=== PATIENT | male | born 2000 | race Caucasian/White ===

== ENCOUNTER 2019-11-01 21:12 | Emergency (ER) | payer MEDICAID, SELFPAY ==
[2019-11-01 21:13] VITALS: BP 178/97; PULSE 100; RESP 18; TEMP 36.9; O2SAT 98; BMI 32.3
--- NOTE | 2019-11-01 21:30 | RAD_ITS ---
STUDY: X-RAY - LEFT HAND REASON FOR EXAM: Male, 19 years old. Bilateral hand pain after punching a wall TECHNIQUE: 3 view(s) of the hand. COMPARISON: Right hand dated November 01, 2019 FINDINGS: Normal radiocarpal articulation. Normal distal radioulnar joint. There are smooth rounded bony densities distal to the ulna that likely reflect underlying ossicles. Normal visualized carpal bones. Normal carpal articulations Normal carpometacarpal articulation of the thumb. Normal second through fifth carpometacarpal joints. There is a fracture within the proximal metaphysis of the fifth metacarpal fracture. Normal metacarpophalangeal joint of the thumb. Normal interphalangeal joint of the thumb. Normal proximal and distal phalanges of the thumb. Normal metacarpophalangeal joints of the second through fifth fingers. Normal proximal and distal interphalangeal joints of the second through fifth fingers. Normal phalanges of the second through fifth fingers. The soft tissue structures are unremarkable. RAD/Hand Min 3 Views IMPRESSION: Fifth metacarpal fracture. Electronically Signed: Rupali Deluna MD at 21:51 EDT Tel , Service support ,
--- NOTE | 2019-11-01 21:40 | RAD_ITS ---
STUDY: X-RAY - RIGHT HAND REASON FOR EXAM: Male, 19 years old. bilateral hand pain after punching a wall TECHNIQUE: 3 view(s) of the hand. COMPARISON: None. FINDINGS: Normal radiocarpal articulation. Normal distal radioulnar joint. Normal visualized carpal bones. Normal carpal articulations Normal carpometacarpal articulation of the thumb. Normal second through fifth carpometacarpal joints. Oblique proximal diaphyseal fracture of the fourth metacarpal with volar angulation of the distal metacarpal. Acute comminuted distal diaphyseal fracture of the fifth metacarpal with mild radial radial displacement and moderate volar angulation of the distal metacarpal. Normal metacarpophalangeal joint of the thumb. Normal interphalangeal joint of the thumb. Normal proximal and distal phalanges of the thumb. Normal metacarpophalangeal joints of the second through fifth fingers. Normal proximal and distal interphalangeal joints of the second through fifth fingers. Normal phalanges of the second through fifth fingers. Fracture related soft tissue swelling. RAD/Hand Min 3 Views IMPRESSION: Acute oblique proximal diaphyseal fracture of the fourth metacarpal with mild volar angulation of the distal fourth metacarpal. Acute comminuted fracture of the distal diaphysis of the fifth metacarpal with mild radial displacement and moderate volar angulation of the distal metacarpal. Electronically Signed: Teodora Lee MD at 21:55 EDT , Service support ,
[2019-11-01] MEDS: Naproxen 250 MG Tablet 500 MG PO (21:43)
[2019-11-01] MEDS: Bupivacaine Mpf 0.5% 30 ML VIAL INFILT (22:40)
--- NOTE | 2019-11-01 23:28 | ED.RN ---
mother called in for pt update
--- NOTE | 2019-11-01 23:59 | ED.VISSUMM ---
- ER Visit Summary Date of Service: 11/01/19 Chief Complaint: [] History of Present Illness: The patient is a 19 M [] Physical Examination: [] Test Results: [] Emergency Department Course and Treatment: [] Treatment Plan: [] Disposition: [] Impression: [] This note was generated with [employer] dictation software. It may contain incorrect words, spelling, and punctuation that were not noted in review of the chart prior to signing ED Disposition - Plan for ED Patient: Disposition: Home or Assisted Living Diagnosis: Boxers fracture Instructions: ED Fx Hand Closed Prescriptions: Oxycodone HCl/Acetaminophen [Percocet 5/325] 1 tab PO Q6H PRN PRN 5 Days #20 tab PRN Reason: Pain Or Fever Prescription Printed Referrals: Michelle Alfaro DO [STAFF PHYSICIAN] - As soon as possible
== END 2019-11-02 00:29 | disposition home or self-care (01) ==
PROVIDERS: Emergency Provider Emergency Medicine; PCP Pediatrics
DX: S62.304A Unspecified fracture of fourth metacarpal bone, right hand, initial encounter for closed fracture (principal); S62.306A Unspecified fracture of fifth metacarpal bone, right hand, initial encounter for closed fracture; S62.307A Unspecified fracture of fifth metacarpal bone, left hand, initial encounter for closed fracture; W22.09XA Striking against other stationary object, initial encounter; Y93.9 Activity, unspecified; Y92.008 Other place in unspecified non-institutional (private) residence as the place of occurrence of the external cause; Y99.9 Unspecified external cause status; I10 Essential (primary) hypertension
CPT/HCPCS: 26605 ×2; 29125; 73130; 99283

== ENCOUNTER 2019-11-16 07:52 | Day surgery (SDC) | payer MEDICAID, SELFPAY ==
[2019-11-09 10:19] VITALS: BMI 32.3
[2019-11-16 08:22] VITALS: BP 142/71; PULSE 72; RESP 16; TEMP 36.9; O2SAT 96; BMI 34.0
[2019-11-16] MEDS: Lactated Ringers 1,000 ML 100 ML IV (08:29)
--- NOTE | 2019-11-16 08:47 | PCM.HP.BLA ---
History and Physical I have re-examined the patient. There are no clinical changes since date of exam. Intake Vital Signs 11/09/19 BMI 32.3 Intake Visit Reasons: Bilat Hands Is patient in pain?: Yes Pain scale (1-10): 4 Allergies No Known Allergies Allergy (Verified 11/09/19 10:19) Medications oxycodone 5 mg capsule 5 mg PO BID PRN 11/09/19 [History Confirmed 11/09/19] PFSH Social History Smoking Status: Current every day smoker HPI Bilat Hands: Details: Parts of this documentation were recorded by a scribe, this documentation accurately reflects the service provided and the decisions made by me, Dr. Michelle Alfaro DO 11/09/19 1011. MOI CORTES JR is a 19 year old M here today for bilateral hand pain. Patient notes last Tuesday he punched a basement wall. Patient notes that he has deformities and went to the ED. Patient had xrays which showed fractures and he was put into splints which he has left on at all times. Patient notes that his pain is at a 4/10 currently. He is taking oxycodone for pain. He is able to move this thumb with no pain. He notes that he has swelling into his fingers and bruising. Denies numbness, tingling or other associated symptoms. SANDOVAL Nguyen Reports joint pain, Reports joint swelling Assessment & Plan Problems 1. Closed displaced fracture of shaft of fifth metacarpal bone of right hand, initial encounter S62.326A 2. Closed displaced fracture of shaft of fourth metacarpal bone of right hand, initial encounter S62.324A 3. Closed nondisplaced fracture of base of fifth metacarpal bone of left hand, initial encounter S62.347A Plan - Dr. Michelle Alfaro DO Spoke with the patient about surgery procedure on his right hand. He will have a plating of his 4th and 5th metacarpal. If he decides to not have surgery, he would lose function of his hand. Spoke with him about removal of the plate if it is painful after a year. Reviewed the pre-operative plans with the patient. Risks and benefits of the procedure were fully explained, including but not limited to infection, neurovascular injury, continued pain, arthritis, stiffness, need for further surgery, re-injury, DVT, PE, general risks of anesthesia, and loss of limb or life. The patient understands all the risks and does wish to proceed with written consent. Spoke with the covid testing and risk of covid. Patient will be put into a cast on his left hand. Recommended the patient stop smoking due to slowed healing. Follow up for 2 week post op appt or sooner if pain, swelling, numbness or associated symptoms, or concerns develop. All questions answered. Patient in agreement of plan. Coding Diagnoses Closed displaced fracture of shaft of fifth metacarpal bone of right hand, initial encounter S62.326A ??Encounter type: initial encounter ??Fracture type: closed ??Metacarpal location: shaft ??Fracture alignment: displaced Closed displaced fracture of shaft of fourth metacarpal bone of right hand, initial encounter S62.324A ??Encounter type: initial encounter ??Fracture type: closed ??Metacarpal location: shaft ??Fracture alignment: displaced Closed nondisplaced fracture of base of fifth metacarpal bone of left hand, initial encounter S62.347A ??Encounter type: initial encounter ??Fracture type: closed ??Metacarpal location: base ??Fracture alignment: nondisplaced Procedure Criteria Procedure Type: Essential Procedure Essential: Yes Criteria Statement: On 09/04/2019 the [facility] ([facility]) Public Order signed by [facility] Director Mariann Page M.D., regarding the Management of Non-Essential Surgeries and Procedures for the purpose of preserving Personal Protective Equipment (PPE) and critical hospital capacity and resources within [place] went into effect as of 09/05/2019 at 5:00PM. According to the [facility] Public Order: This action will remain in full force and effect until the State of Emergency declared by the Governor no longer exists or the Director of the [facility] rescinds or modifies this Order. This [facility] order stated all non-essential or elective surgeries and procedures that utilize PPE should be delayed unless there is undue risk to the current or future health of a patient. After reviewing the aforementioned [facility] Public Order and the patient's clinical case, I have determined that the scheduled procedure meets the criteria to go forward. Risk to Patient if Procedure Delayed: Presence of severe symptoms causing an inability to perform ADL's
[2019-11-16] MEDS: Cefazolin 2 GM in 0.9% Normal Saline 100 ML IV (09:36)
--- NOTE | 2019-11-16 09:40 | RAD_ITS ---
STUDY: X-RAY - LEFT HAND REASON FOR EXAM: Closed reduction fifth metacarpal fracture. TECHNIQUE: 2 intraoperative images of the hand. COMPARISON: Radiographs 11/01/2019. FINDINGS: Although there is an overlying cast, the fifth metacarpal fracture appears in anatomic alignment and position. 5.7 seconds of fluoroscopy time was used. Electronically Signed: Anthony Potter MD at 15:02 EDT Tel , Service support , RAD/Hand Min 3 Views
--- NOTE | 2019-11-16 09:40 | RAD_ITS ---
STUDY: X-RAY - RIGHT HAND REASON FOR EXAM: ORIF fourth and fifth metacarpal fractures. TECHNIQUE: 4 intraoperative images of the hand. COMPARISON: Radiographs 11/01/2019. FINDINGS: There is an orthopedic plate and screws transfixing the fifth metacarpal diaphyseal fracture in anatomical alignment and position. There are 3 orthopedic screws transfixing the fourth metacarpal diaphyseal fracture in anatomic alignment and position. 79.6 seconds of fluoroscopy time was used. Electronically Signed: Anthony Potter MD at 15:29 EDT Tel , Service support , RAD/Hand Min 3 Views
[2019-11-16] MEDS: Mupirocin Ointment 22gm Tube 1 APPLIC (13:06)
--- NOTE | 2019-11-16 13:12 | PCM.DC.ORTHO ---
Discharge Diet: No Restrictions - nwb bilateral upper extremities, keep dressing clean dry and intact, follow up in 2 weeks with nik jean or dr alfaro [phone] Discharge Activity: May Not Drive May shower in (days): 1 Ice area for (Minutes): 20 - Every hour while awake. Weight Bearing Status: Weight bearing as tolerated Keep extremity elevated above heart level: Operative Extremity Call your doctor if your incision/area has: Continuous Slow Oozing, Sudden Increased Bleeding, Increased Pain/ Swelling, Increased Redness, Foul Smelling Discharge Call your doctor if you observe: Fever of 101 or Higher, Coldness, Increased Pain, Numbness or Tingling, Change in Color, Calf discomfort Allergies/Adverse Reactions: Allergies No Known Allergies Allergy (Verified 11/16/19 08:21) Medications to take at Discharge oxycodone 5 mg capsule 5 mg PO BID PRN 11/09/19 Oxycodone HCl/Acetaminophen [Percocet 5/325] 1 - 2 tablet PO Q6H PRN PRN 5 Days #28 tablet 11/16/19 The following prescriptions were given: Oxycodone HCl/Acetaminophen [Percocet 5/325] 1 - 2 tablet PO Q6H PRN PRN 5 Days #28 tablet PRN Reason: Pain Transmission Status: Sent to [facility] Primary Care Physician: Samuel Alvarez MD [Primary Care Provider] - Test Results: Test results from this visit will be discussed in further detail at your follow-up appointment, if applicable. Please Follow Up With: Michelle Alfaro, - [phone]
--- NOTE | 2019-11-16 13:13 | OP.PCM_ITS ---
Report of Operation Date of Procedure: 11/16/19 Pre-Operative Diagnosis: Right fourth and fifth displaced metacarpal fractures, left nondisplaced fourth metacarpal fracture Post-Operative Diagnosis: Same Surgery/Procedure Performed:: ORIF right fourth and fifth metacarpal, closed reduction splint left upper extremity/wrist proof passer: Geoff Tijerina Type of Anesthesia:: General Anesthesiologist: Pal Rosa Fluids Replaced: 800 cc lr Description of Procedure: Preop note COVRADHA Man we discussed the current risk associated COVID-19. While it is understood that there is a community spread of COVID 19 the risk of natacha COVID-19 while at [facility] is very low, however, the risk cannot be completely mitigated because of the community spread of the disease. We discussed in detail the risk of exposure to and or potential harm posed by the COVID-19 virus with having a surgery/procedure at this time versus the risk of delaying the surgery/procedure. Is not possible to know either the risk of delaying the surgery procedure or chance of getting an infection with perfect accuracy, but a joint decision was made to proceed at this time with a schedule surgery/procedure as indicated on the consent form. Patient was notified that we will need to comply with any screening or testing [facility] wishes to perform or that surgery may be delayed for any positive results. Preop note Patient seen in preop holding area discussed risks and options for treatment for his bilateral upper extremity he has a displaced right fifth and fourth and left nondisplaced. Patient punched a wall and unable to be closed reduced without malalignment of his right hand. Risk benefits alternatives were discussed with patient. Risk including but not limited to blood loss, blood clot, infection, neurovascular, failure procedure, loss of life and loss of limb. Patient is aware like proceed with ORIF of his right hand close reduction casting splinting of the left upper extremity Operative note Patient seen and examined preoperative holding area. Right hand was marked. Patient brought to the operating room and placed supine on the operating room table. Signed, anesthesia, antibiotics were administered. By the bilateral lower extremities SCDs were placed and all bony prominences well-padded. We mar ked out our right upper extremity incision after right arm was prepped and draped usual usual sterile fashion with a tourniquet around his upper arm. Timeout was performed.. We used fluoroscopy to ascertain the extent of our incision which was between the fifth and fourth metacarpals. Timeout was performed we then elevated segmented the arm tourniquet was raised her pressure of 250 torr. We then used a 15 blade to cut through skin dissected down with tenotomies level of the bryce-to the tendons the tendons that were retracted ulnarly we did protect all neurovascular structures at all times. The moved down to the fifth metacarpal initially. We elevated this the periosteum in a sharp fashion using a freer barely able to then debride out the fracture site with bone pick and then irrigated with copious muscle sterilely sterile saline. We then measured and to plate cut the last remaining 2 holes and placed the 2 plate on top of the fracture site and reduce the fracture to the plate. Please see chart for specific screw hole. Please note that we used a [employer] 2 oh LCP plate system. We had great reduction of the fracture site multiple planes. We then moved to the fourth metacarpal. Please note the patient is about 2 weeks from his initial injury had more extensive callus and we did take her time removing all of the callus in order not to sure the bone in order to ascertain t he rotation of the bones for optimal alignment and was to take is a little bit of time. We then moved to the fourth metacarpal again the periosteum was excised sharply the split actually went and oblique in a spiral fashion distally. We attempted initially to place the plate however in doing so we can get the rotational alignment perfect so then the plate was discarded and then placed 3 screws in lag fashion across the fracture site we had great reduction of her fracture we then rechecked our cascade which was great which was intact. We then irrigated the incisions with copious muscle sterile saline closed the periosteum over the plate on the fifth with 3-0 Vicryl and then closed the skin with 3-0 Vicryl in a running 4 Monocryl. Sterile dressings were applied and a splint was applied to the right hand plate. Please note that multiple times throughout the case we did use fluoroscopy to ascertain the length of screws and length as well as alignment which was done throughout the case. We then moved to the left upper extremity we performed a closed reduction and splinting of the left upper extremity and then placed cast/splint on the left upper extremity. Tourniquet was fully deflated on the right for total return 120 minutes. Patient taught procedure well no complication transferred recovery room in stable condition Postoperative Follow-up in 2 weeks Man disclaimer Discussed with girlfriend Pharmacy has pain prescription Call with increased pain numbness tingling further issues arise Nonweightbearing bilateral upper extremity This note was generated with [employer] dictation software. It may contain incorrect words, spelling, and punctuation that were not noted in checking the note before signing. Grafts/Implants Used: [employer] 2.0 modular mini LCP
[2019-11-16 13:20] VITALS: BP 139/74; BP 142/71; PULSE 70; RESP 16; TEMP 36.9; O2SAT 96
[2019-11-16 13:30] VITALS: BP 128/74; BP 142/71; PULSE 69; RESP 18; O2SAT 99
[2019-11-16 13:45] VITALS: BP 123/68; BP 142/71; PULSE 62; RESP 18; O2SAT 92
[2019-11-16 13:50] VITALS: BP 128/71; BP 142/71; RESP 18; TEMP 37.3; O2SAT 98
[2019-11-16] MEDS: HYDROcodone Bitartrate/Apap 5/325 Tablet PO (14:29)
[2019-11-16 14:59] VITALS: BP 127/80; BP 142/71; PULSE 59; RESP 18; TEMP 35.6; O2SAT 97
== END 2019-11-16 15:05 | disposition home or self-care (01) ==
LOC: SDC 07:53 → AC 07:53
PROVIDERS: PCP Pediatrics; Referring Provider Orthopaedic Surgery; Visit Provider Orthopaedic Surgery
PROC: (CPT 26615; principal; 2019-11-16 09:15)
DX: S62.324A Displaced fracture of shaft of fourth metacarpal bone, right hand, initial encounter for closed fracture (principal); S62.326A Displaced fracture of shaft of fifth metacarpal bone, right hand, initial encounter for closed fracture; S62.347A Nondisplaced fracture of base of fifth metacarpal bone, left hand, initial encounter for closed fracture; Z11.59 Encounter for screening for other viral diseases; W22.09XA Striking against other stationary object, initial encounter; Y93.9 Activity, unspecified; Y92.9 Unspecified place or not applicable; Y99.9 Unspecified external cause status; F17.200 Nicotine dependence, unspecified, uncomplicated
CPT/HCPCS: 26605; 26615 ×2; 73130; 76000; 87635; C1713; G2023; J7120; J2405; U0004

== ENCOUNTER → 2019-11-29 09:52 | Outpatient (CLI) | payer MEDICAID, SELFPAY ==
[2019-11-29 09:37] VITALS: BMI 34.0
--- NOTE | 2019-11-29 09:52 | RAD_ITS ---
STUDY: X-RAY - RIGHT HAND REASON FOR EXAM: Postoperative follow-up of fractures. TECHNIQUE: 3 view(s) of the hand. COMPARISON: Intraoperative images 11/16/2019. FINDINGS: Normal radiocarpal articulation. Normal distal radioulnar joint. Normal visualized carpal bones. Normal carpal articulations Normal carpometacarpal articulation of the thumb. Normal second through fifth carpometacarpal joints. There is an orthopedic plate and screws transfixing a fifth metacarpal fracture in anatomical alignment and position with early callus formation. There are orthopedic screws transfixing a fourth metacarpal diaphyseal fracture in anatomic alignment and position with early callus formation. Normal metacarpophalangeal joint of the thumb. Normal interphalangeal joint of the thumb. Normal proximal and distal phalanges of the thumb. Normal metacarpophalangeal joints of the second through fifth fingers. Normal proximal and distal interphalangeal joints of the second through fifth fingers. Normal phalanges of the second through fifth fingers. The soft tissue structures are unremarkable. RAD/Hand Min 3 Views IMPRESSION: ORIF of fourth and fifth metacarpal fractures with early callus formation. Electronically Signed: Anthony Potter MD at 13:33 EDT Tel , Service support ,
--- NOTE | 2019-11-29 09:52 | RAD_ITS ---
STUDY: X-RAY - LEFT HAND REASON FOR EXAM: Follow-up fracture. TECHNIQUE: 3 view(s) of the hand. COMPARISON: Radiographs 11/01/2019. FINDINGS: Normal radiocarpal articulation. Normal distal radioulnar joint. Normal visualized carpal bones. Normal carpal articulations Normal carpometacarpal articulation of the thumb. Normal second through fifth carpometacarpal joints. There is a nondisplaced healing fracture of the proximal fifth metacarpal metaphysis. Normal metacarpophalangeal joint of the thumb. Normal interphalangeal joint of the thumb. Normal proximal and distal phalanges of the thumb. Normal metacarpophalangeal joints of the second through fifth fingers. Normal proximal and distal interphalangeal joints of the second through fifth fingers. Normal phalanges of the second through fifth fingers. There are ossicles adjacent to the ulnar styloid process. RAD/Hand Min 3 Views IMPRESSION: No significant interval change of fifth metacarpal fracture. Electronically Signed: Anthony Potter MD at 13:13 EDT Tel , Service support ,
== END ==
PROVIDERS: PCP Pediatrics; Referring Provider Orthopaedic Surgery; Visit Provider Orthopaedic Surgery
DX: S62.304A Unspecified fracture of fourth metacarpal bone, right hand, initial encounter for closed fracture (principal); S62.306A Unspecified fracture of fifth metacarpal bone, right hand, initial encounter for closed fracture; S62.307A Unspecified fracture of fifth metacarpal bone, left hand, initial encounter for closed fracture
CPT/HCPCS: 73130

== ENCOUNTER → 2019-12-27 13:01 | Outpatient (CLI) | payer MEDICAID, SELFPAY ==
[2019-11-29 10:38] VITALS: BMI 34.0
--- NOTE | 2019-12-27 13:01 | RAD_ITS ---
STUDY: X-RAY - RIGHT HAND REASON FOR EXAM: Four-week follow-up of right hand fracture. TECHNIQUE: 3 view(s) of the hand. COMPARISON: Radiographs 11/29/2019. FINDINGS: Normal radiocarpal articulation. Normal distal radioulnar joint. Normal visualized carpal bones. Normal carpal articulations Normal carpometacarpal articulation of the thumb. Normal second through fifth carpometacarpal joints. There is an orthopedic plate and screws transfixing a fifth metacarpal fracture in anatomical alignment and position with increasing callus formation. There are orthopedic screws transfixing a fourth metacarpal diaphyseal fracture in anatomic alignment and position with early callus formation as on the prior study. Normal metacarpophalangeal joint of the thumb. Normal interphalangeal joint of the thumb. Normal proximal and distal phalanges of the thumb. Normal metacarpophalangeal joints of the second through fifth fingers. Normal proximal and distal interphalangeal joints of the second through fifth fingers. Normal phalanges of the second through fifth fingers. The soft tissue structures are unremarkable. RAD/Hand Min 3 Views IMPRESSION: ORIF of healing fourth and fifth metacarpal fractures. Electronically Signed: Anthony Potter MD at 13:54 EDT Tel , Service support ,
--- NOTE | 2019-12-27 13:01 | RAD_ITS ---
STUDY: X-RAY - LEFT HAND REASON FOR EXAM: Four-week follow-up of left hand fracture. TECHNIQUE: 3 view(s) of the hand. COMPARISON: Radiographs 11/29/2019. FINDINGS: Normal radiocarpal articulation. Normal distal radioulnar joint. Normal visualized carpal bones. Normal carpal articulations Normal carpometacarpal articulation of the thumb. Normal second through fifth carpometacarpal joints. There is a nondisplaced healing fracture of the proximal fifth metacarpal metaphysis. Normal metacarpophalangeal joint of the thumb. Normal interphalangeal joint of the thumb. Normal proximal and distal phalanges of the thumb. Normal metacarpophalangeal joints of the second through fifth fingers. Normal proximal and distal interphalangeal joints of the second through fifth fingers. Normal phalanges of the second through fifth fingers. There are ossicles adjacent to the ulnar styloid process. RAD/Hand Min 3 Views IMPRESSION: Healing fifth metacarpal fracture. Electronically Signed: Anthony Potetr MD at 13:46 EDT Tel , Service support ,
== END ==
PROVIDERS: PCP Pediatrics; Referring Provider Orthopaedic Surgery; Visit Provider Orthopaedic Surgery
DX: S62.304A Unspecified fracture of fourth metacarpal bone, right hand, initial encounter for closed fracture (principal); S62.306A Unspecified fracture of fifth metacarpal bone, right hand, initial encounter for closed fracture; S62.307A Unspecified fracture of fifth metacarpal bone, left hand, initial encounter for closed fracture; S62.347A Nondisplaced fracture of base of fifth metacarpal bone, left hand, initial encounter for closed fracture; X58.XXXA Exposure to other specified factors, initial encounter; Y93.9 Activity, unspecified; Y92.9 Unspecified place or not applicable; Y99.9 Unspecified external cause status
CPT/HCPCS: 73130

== ENCOUNTER 2023-01-09 22:38 | Emergency (ER) | payer MEDICAID, SELFPAY ==
[2023-01-09 22:40] VITALS: BP 143/87; PULSE 90; RESP 18; TEMP 36.3; O2SAT 99; BMI 39.1
--- NOTE | 2023-01-09 22:57 | EDS_ITS ---
HPI HPI - Psych History of Present Illness Chief Complaint: Mental Health Narrative Narrative: Patient has had history of depression and suicidal ideations however this was in his teens and early teens and has seen counselors however for the past 6 or 7 years he has not been on any medications or seeing any counselors. He tells me his life has been somewhat rough the past few years, finances, he has 2 children but he can only see at his mother's house due to his limited housing at this time. He does not like his job. For the past month or 2 he has been increasingly depressed and he has had thoughts about hurting himself. Today he felt like he may do something to hurt himself and thus had his mom bring him to the emergency department. [facility] Medical History (Updated 01/09/23 @ 23:01 by Nimco Dee) Anxiety Depression Substance abuse Home Medications ibuprofen 800 mg tablet 800 mg PO TID PRN pain #60 tabs 12/27/19 [Rx Last Taken Unknown] Allergy/AdvReac Type Severity Reaction Status Date / Time No Known Allergies Allergy Verified 01/09/23 22:40 Social History Smoking Status: Current every day smoker ROS ROS ED ROS Narrative Past medical history: Reviewed Medications: Reviewed Social history: Noncontributory Review of systems: General: No fever, essentially no somatic complaints. Eyes: No visual changes ENT: No upper airway congestion, normal voice Neck: No neck pain Cardiovascular: No chest pain Respiratory: No shortness of breath or cough Gastrointestinal: No abdominal pain, nausea vomiting or diarrhea Genitourinary: No dysuria Musculoskeletal: Denies myalgias no difficulty with ambulation Skin: No rash Neurological: No memory loss, confusion or any focal weakness Psych: As in HPI EXAM Physical Exam Narrative Exam Narrative: Physical exam General: Well nourished, Well developed, No Acute Distress Head: Normocephalic, Atraumatic Eyes: Conjunctiva not pale ENT: Moist mucous membranes Neck: Supple, Nontender, No lymphadenopathy Cardiovascular: Regular rate, Regular rhythm Respiratory: No distress, CTA bilaterally Abdomen: Soft, Nontender, Nondistended Back: Nontender, Normal Inspection. Negative for: CVA tenderness Extremities: Nontender, No edema Skin: Normal color, No rash Neurological: Alert, Normal Strength, Normal Sensation Psychological: He has a depressed and flat affect, he does not make eye contact easily. He is lucid coherent no psychosis. Answers questions appropriately. He is forthcoming with everything. Const Vital Signs: 01/09/23 22:40 Temperature 97.4 F L Temperature Source Temporal Pulse Rate 90 Respiratory Rate 18 Blood Pressure 143/87 H Blood Pressure Mean 105 Pulse Ox 99 Oxygen Delivery Method Room Air MDM MDM MDM Narrative Medical decision making narrative: Patient will be medically cleared. He does have active suicidal ideations therefore he will be seen by crisis for placement. He likely will need medications, these I will leave up to psychiatry. At this time he is lucid coherent and not combative therefore emergent medications are not needed. Discharge Plan Triage Chief Complaint: Mental Health ED Provider: Rohit Love Dx/Rx/DC Orders Clinical Impression: Suicidal ideations, Anxiety, Depression Prescriptions: No Action ibuprofen 800 mg tablet 800 mg PO TID PRN (Reason: pain) Qty: 60 1RF Rx Instructions: stop all other nsaids Primary Care Provider: Samuel Alvarez Referrals: Samuel Alvarez MD [Primary Care Provider] - Disposition Disposition: Psychiatric Hospital or Unit
[2023-01-09 23:33] LABS: Absolute Lymphocyte Count 2.82 X10^3/uL (0.83-4.51); Absolute Neutrophil Count 4.9 X10^3/uL (2.0-7.7); Anion Gap 4 (5-15); BUN 11 mg/dL (7-18); BUN/Creat Ratio 9.9 RATIO (10-20); Basophil# 0.14 X10^3/uL; Basophil% 1.6 % (0-1); Calcium,Total 8.8 mg/dL (8.5-10.1); Chloride 106 mmol/L (98-107); Creatinine, Serum 1.11 mg/dL (0.70-1.30); EST Glomerular Filtration Rate 87 mL/min (>60); Eosinophil# 0.29 X10^3/uL; Eosinophils% 3.3 % (0-5); Est Glom Filt Rate - Afr Amer 105 mL/min (>60); Estimated Creatinine Clearance 106.87 ml/min; Glucose 88 mg/dL (74-106); Hematocrit 48.8 % (40-54); Hemoglobin 16.6 g/dL (13.0-16.5); Lymphocyte # 2.82 X10^3/ul (0.83-4.51); Lymphocyte % 31.9 % (19-41); Mean Corpuscular Hgb 29.5 pg (27.0-32.0); Mean Corpuscular Volume 86.7 fL (80-94); Mean Platelet Vol. 10.1 fl (6.2-12.0); Monocyte# 0.57 X10^3/uL; Monocyte% 6.5 % (0-10); NRBC Flagged by Analyzer 0 % (0-5); Neutrophil # 4.93 X10^3/uL (2.7-7.7); Neutrophil % 55.8 % (47-70); Platelet Count 272 K/mm3 (150-450); Potassium 3.6 mmol/L (3.5-5.1); RBC Distribution Width CV 12.2 % (11.6-14.6); RBC Distribution Width SD 39.1 fl (35.1-43.9); Red Blood Count 5.63 M/mm3 (4.6-6.2); Sodium Level 139 mmol/L (136-145); White Blood Count 8.8 K/mm3 (4.4-11.0)
[2023-01-09 23:35] LABS: Amphetamine Urine VISTA NEGATIVE (<1000 ng/mL); Barbiturate Urine VISTA NEGATIVE (< 200 ng/mL); Benzodiazepine Urine VISTA NEGATIVE (< 200 ng/mL); Cocaine Urine VISTA NEGATIVE (< 300 ng/mL); Ecstacy Urine VISTA NEGATIVE (< 500 ng/mL); Methadone Urine VISTA NEGATIVE (< 300 ng/mL); PCP Urine VISTA NEGATIVE (< 25 ng/mL); THC Urine VISTA POSITIVE (< 50 ng/mL); Vista UDS pH Range 6
[2023-01-09 23:37] LABS: Alcohol, Blood (Medical)-Serum < 3.0 mg/dL
[2023-01-09] MEDS: LORazepam 0.5 MG Tablet PO (23:52)
[2023-01-10] VITALS: PULSE 88; RESP 16; O2SAT 98
[2023-01-10 02:00] VITALS: RESP 16
[2023-01-10 06:00] VITALS: RESP 16
[2023-01-10 06:21] VITALS: PULSE 89; RESP 16
[2023-01-10 06:22] VITALS: BP 138/80; PULSE 89; RESP 16; O2SAT 98
[2023-01-10] MEDS: LORazepam 0.5 MG Tablet PO (09:43)
[2023-01-10 09:49] VITALS: BP 122/78; PULSE 67; RESP 16; O2SAT 98
--- NOTE | 2023-01-10 11:14 | CM.ED ---
Social Work SW notified by Crisis that patient was accepted to [facility] by Dr. García. Staff notified to arrange transport and call report. Teri Zavaleta TATTOO DESIGNER, BIOFUELS MANAGER
--- NOTE | 2023-01-10 11:46 | ED.RN ---
RN report given to Jasmyne with no questions or concerns.
== END 2023-01-10 11:48 ==
LOC: ED 23:19
PROVIDERS: Emergency Provider Emergency Medicine; Visit Provider Emergency Medicine
DX: F32.A Depression, unspecified (principal); R45.851 Suicidal ideations; F41.9 Anxiety disorder, unspecified; F17.200 Nicotine dependence, unspecified, uncomplicated
CPT/HCPCS: 80048; 80307; 82077; 85025; 87811; 99285

== ENCOUNTER 2023-07-15 21:44 | Emergency (ER) | payer MEDICAID, SELFPAY ==
[2023-07-15 21:45] VITALS: BP 150/82; PULSE 92; RESP 15; TEMP 37; O2SAT 98; BMI 37.4
--- NOTE | 2023-07-15 22:19 | EX.ED.DYSGE1 ---
HPI History of Present Illness Chief Complaint: Complaint Detail of Chief Complaint: Hematuria, right inguinal pain and discomfort with urination Informant: patient Onset/Context/Timing Onset: Today (This morning at approximately 11 AM) Context: Sudden Onset Timing: Intermittent Quality: Hematuria this morning and right groin pain. This evening he complained of Location: Urologic Current Severity: Mild Maximum Severity: Moderate Worsened by: Nothing specific Relieved by: Nothing Associated Symptoms Associated Symptoms: Dysuria Narrative Narrative: Patient is a 23-year-old male who presents because of urologic symptoms. He states this morning at approximately 11 AM he noted gross blood in his urine. He also complained of pain in the right inguinal area. He does not have history of renal ureterolithiasis. Mother has history of renal/ureteral lithiasis. He denies fever, chills night sweats. He denies penile lesion or discharge. He denies history of STI. He denies scrotal pain or swelling. He has noted a bump on the shaft of his penis. He states he has been with his girlfriend for the past 2 years. He denies headache, photophobia, myalgias or arthralgias. Prior similar symptoms: No Recent Illness/Hospitalization: No PFSH PFSH Medical History Anxiety Depression Substance abuse Home Medications ibuprofen 800 mg tablet 800 mg PO TID PRN pain #60 tabs 12/27/19 [Rx Last Taken Unknown] doxycycline monohydrate 100 mg capsule 100 mg PO BID #14 CAPSULES 07/16/23 [Rx Last Taken Unknown] Allergy/AdvReac Type Severity Reaction Status Date / Time No Known Allergies Allergy Verified 01/09/23 22:40 Surgical History no surgical history no surgical history Social History (Updated 07/15/23 @ 22:[address] Mekhi Costa MD) household members: family Smoking Status: Current every day smoker tobacco type: cigarettes ROS ROS ED Constitutional Constitutional ED: Denies chills, fever(s), subjective or sweats Eyes Eyes: Denies blurry vision, change in vision or diplopia Gastrointestinal Gastrointestinal: Denies abdominal pain, constipation, diarrhea, melena, nausea or vomiting Genitourinary Genitourinary ED: Reports dysuria and hematuria; Denies LMP (females 10-50) or urinary frequency Musculoskeletal Musculoskeletal: Denies arthralgias, back pain or myalgias Integumentary Denies rash Endocrine Endocrinology: Denies cold intolerance or heat intolerance Hematologic/Lymphatic Hematologic/Lymphatic: Reports systems reviewed and no addt'l complaints, except as documented EXAM Physical Exam Const Vital Signs: 07/15/23 21:45 07/16/23 02:44 07/16/23 04:07 Temperature 98.6 F Temperature Source Temporal Pulse Rate 92 68 70 Respiratory Rate 15 16 15 Blood Pressure 150/82 H 131/76 H 120/93 H Blood Pressure Mean 104 94 102 Pulse Ox 98 98 97 Oxygen Delivery Method Room Air Room Air 07/16/23 04:08 Temperature Temperature Source Pulse Rate 70 Respiratory Rate 15 Blood Pressure 120/93 H Blood Pressure Mean 102 Pulse Ox 97 Oxygen Delivery Method Room Air Positive well nourished, well developed and obese General Appearance ED: well developed and NAD; Negative for cyanotic, diaphoretic or pallor Nutritional Appearance: obese HEENT Reports moist mucous membranes HEENT Narrative: Head is atraumatic and normocephalic. Ears normal. Nares patent. Mucosa moist. Eyes PERRL and EOMs intact bilaterally General Eye ED: Negative for pale conjunctiva or scleral icterus Neck no lymphadenopathy, supple and no JVD Chest Wall inspection of chest normal and palpation of chest normal Resp normal respiratory effort and clear to auscultation bilaterally Cardio regular rate, regular rhythm, S1 normal heart sound, S2 normal heart sound and no murmurs GI non-distended and no masses; Negative for non-tender or hepatosplenomegaly Inspection: Negative for abdominal distention Auscultation: hypoactive bowel sounds Palpation: soft and tender other (Right inguinal area. There is no lymphadenopathy.); Negative for guarding or rebound tenderness present Narrative: Circumcised without penile lesions. There is no urethral discharge. Testes are descended bilaterally. Left testicle is normal. He has tenderness right epididymis. There is also tenderness of the vas deferens. There is no evidence of inguinal hernia or bulge. Back/Spine no CVA tenderness Extremity normal to inspection Neuro oriented x3 and CN's II-XII intact bilaterally Sensorium / Orientation: alert Psych mental status grossly normal Skin no rashes or lesions noted, no wounds and skin turgor normal General Skin Exam: elasticity normal; Negative for jaundice or pallor MDM MDM MDM Narrative Medical decision making narrative: With hematuria this may represent ureteral lithiasis. This also could be due to urinary tract infection which would be unusual for a 23-year-old. Need to consider STI. Urine for GC and chlamydia was ordered. UA was ordered. Patient's blood pressure is noted to be elevated. He has no neurologic symptoms. History & Record Review Additional record(s) reviewed:: No prior records Lab Data Attestation: I reviewed the patient's lab results. Lab results narrative: White count is elevated 17.2 thousand with shift. There is no bandemia. H&H is unremarkable. Labs: Laboratory Results - last 24 hr 07/15/23 07/15/23 22:35 23:05 WBC 17.2 H RBC 5.18 Hgb 15.2 Hct 44.7 MCV 86.3 MCH 29.3 MCHC 34.0 RDW Std Deviation 37.9 RDW Coeff of Sylvain 11.9 Plt Count 231 MPV 10.0 Immature Gran % (Auto) 0.300 Neut % (Auto) 80.5 H Lymph % (Auto) 10.5 L [place] % (Auto) 6.5 Eos % (Auto) 1.6 Baso % (Auto) 0.6 Absolute Neuts (auto) 13.8 H Absolute Lymphs (auto) 1.81 Nucleated RBC % 0 Sodium 138 Potassium 3.8 Chloride 109 H Carbon Dioxide 27.0 Anion Gap 2 L BUN 11 Creatinine 0.95 Estim Creat Clear Calc 154.59 Est GFR (MDRD) Af Amer 124 Est GFR (MDRD) Non-Af 103 BUN/Creatinine Ratio 11.5 Glucose 93 Calcium 8.7 Urine Color Yellow Urine Clarity Clear Urine pH 6.0 Ur Specific [place] 1.025 Urine Protein 15 H Urine Glucose (UA) Normal Urine Ketones Negative Urine Occult Blood 10 H Urine Nitrite Negative Urine Bilirubin Negative Urine Urobilinogen Normal Ur Leukocyte Esterase 25 H Urine RBC 0 SEEN Urine WBC 0-5 SEEN Ur Squamous Epith Cells 0 SEEN Urine Bacteria 0 SEEN Urine Mucus 0 SEEN Radiography Diagnostic Testing: Clinical Impression(s) from Imaging Studies Abdomen/Pelvis CT 07/16/23 01:31 IMPRESSION: 1. Mild subcutaneous edema at right groin with adjacent subcentimeter inguinal lymph node. Correlate clinically for focal cellulitis or mild adenitis. 2. Otherwise, no evidence of acute intra-abdominal abnormality. Electronically Signed: Simon Thapa MD at 2:52 EST , Treatment and Re-Evaluation :: Patient was reassessed at 0130. Patient has significant tenderness in the right lower quadrant right inguinal area. Since his urine it does not appear to be infected and his white count is 17.2 thousand with shift will obtain CT of the abdomen pelvis to evaluate for colitis, appendicitis etc. Patient was reexamined at 0330 in light of the radiology read. There is no evidence of cellulitis. He does have a tender inguinal node. Since he has no elevated white count we will treat with doxycycline for anaerobic, gram-positive and gram-negative organisms. He received his first dose in the emergency department. He also was given a work excuse. Discharge Plan Triage Chief Complaint: Complaint ED Provider: Mekhi Costa Dx/Rx/DC Orders Clinical Impression: Hematuria of unknown cause, Leukocytosis, Deep inguinal lymphadenopathy Instructions: Lymphadenopathy Prescriptions: New doxycycline monohydrate 100 mg capsule 100 mg PO BID Qty: 14 0RF No Action ibuprofen 800 mg tablet 800 mg PO TID PRN (Reason: pain) Qty: 60 1RF Rx Instructions: stop all other nsaids Primary Care Provider: Care Physician,No Primary Referrals: Care Physician,No Primary [Primary Care Provider] - Doctor,Your [Non-Staff] - 3-5 Days Activity Restrictions/Additional Instructions: Follow-up with your doctor. The name of your doctor is listed on the insurance card [facility]. Disposition Disposition: Home, Self Care Discharge Date/Time: 07/16/23 04:09
--- OUTSIDE RECORDS SUMMARY | 2023-07-15 22:24 | XMS RPT_ITS | CCD ---
Author Name Unknown Address [address] [place] [address] Organization [facility] Results Test Name Value Interpretation Reference Range Facil ity Progress note 02-20-2021 Note Date & Type Note Facility 02-20-2021 Note HNO ID: [id number] Author: Fabián Witt APRN.PUBLIC HEALTH ADMINISTRATOR Service: ? Author Type: Nurse Practitioner Type: Progress Notes Filed: 02/20/2021 3:38 PM Note Text: Subjective HPI HPI Gurwinder Neff Garland DealAngelito is a 20 year old male who presents today for CC of congestion, cough, diarrhea. This started 4 days ago. Has tried otc medication for relief. Symptoms are worsened by nothing. Risk factors known sick exposures. Denies loss taste/smell, diarrhea, cp/sob. .Patient presents with: Head Congestion: drainage, cough and diarrhea x 4 days PAST MEDICAL HISTORY Diagnosis Date - ADHD (attention deficit hyperactivity disorder) - Distal radius fracture, left 12/28/2012 - Major depressive disorder 12/10/2011 - PMH - PAST MEDICAL HISTORY OF 02/2004 normal color vision - Respiratory syncytial virus (RSV) 1998 - Unspecified asthma(493.90) resolved PAST SURGICAL HISTORY Procedure Laterality Date - CIRCUMCISION,OTHR, - EXTRACTION ERUPTED TOOTH/EXR 09/11/2015 - REMOVE TONSILS/ADENOIDS,<12 Y/O age 3 ALLERGIES Patient has no known allergies. Reviewed MEDICATIONS lisdexamfetamine (VYVANSE) 70 mg capsule Take 1 capsule by mouth once daily. lisdexamfetamine (VYVANSE) 70 mg capsule Take 1 capsule by mouth once daily. lisdexamfetamine (VYVANSE) 70 mg capsule Take 1 capsule by mouth once daily. lisdexamfetamine (VYVANSE) 70 mg capsule Take 1 capsule by mouth once daily. lisdexamfetamine (VYVANSE) 70 mg capsule Take 1 capsule by mouth once daily. lisdexamfetamine (VYVANSE) 70 mg capsule Take 1 capsule by mouth once daily. Dextromethorphan-guaiFENesin (ADULT ROBITUSSIN PEAK COLD DM) 10-100 mg/5 mL liquid Take 5 mL by mouth every 12 hours. reviewed FAMILY HISTORY Problem Relation Age of Onset - Hypertension Maternal Grandmother - other (leukemia [Other]) Maternal Grandfather Social History Tobacco Use - Smoking status: Current Every Day Smoker - Smokeless tobacco: Never Used - Tobacco comment: Mother smokes- outside Substance Use Topics - Alcohol use: No - Drug use: No Review of Systems Constitutional: Positive for malaise/fatigue. Negative for fever. HENT: Positive for congestion. Negative for ear pain, nosebleeds and sore throat. Respiratory: Positive for cough. Negative for shortness of breath and wheezing. Gastrointestinal: Positive for diarrhea. Negative for abdominal pain, constipation and vomiting. Musculoskeletal: Negative for neck pain. Skin: Negative for itching and rash. Objective Blood pressure 130/82, pulse 110, temperature 37.2 ?C (99 ?F), resp. rate 18, weight 130.2 kg (287 lb), SpO2 97 %. Physical Exam Constitutional: General: He is not in acute distress. Appearance: He is not toxic-appearing or
[2023-07-15 22:42] LABS: Absolute Lymphocyte Count 1.81 X10^3/uL (0.83-4.51); Absolute Neutrophil Count 13.8 X10^3/uL (2.0-7.7); Basophil# 0.11 X10^3/uL; Basophil% 0.6 % (0-1); Eosinophil# 0.27 X10^3/uL; Eosinophils% 1.6 % (0-5); Hematocrit 44.7 % (40-54); Hemoglobin 15.2 g/dL (13.0-16.5); Lymphocyte # 1.81 X10^3/ul (0.83-4.51); Lymphocyte % 10.5 % (19-41); Mean Corpuscular Hgb 29.3 pg (27.0-32.0); Mean Corpuscular Volume 86.3 fL (80-94); Monocyte# 1.11 X10^3/uL; Monocyte% 6.5 % (0-10); NRBC Flagged by Analyzer 0 % (0-5); Neutrophil # 13.83 X10^3/uL (2.7-7.7); Neutrophil % 80.5 % (47-70); Platelet Count 231 K/mm3 (150-450); RBC Distribution Width CV 11.9 % (11.6-14.6); RBC Distribution Width SD 37.9 fl (35.1-43.9); Red Blood Count 5.18 M/mm3 (4.6-6.2); White Blood Count 17.2 K/mm3 (4.4-11.0)
[2023-07-15 23:02] LABS: Anion Gap 2 (5-15); BUN 11 mg/dL (7-18); BUN/Creat Ratio 11.5 RATIO (10-20); Calcium,Total 8.7 mg/dL (8.5-10.1); Chloride 109 mmol/L (98-107); Creatinine, Serum 0.95 mg/dL (0.70-1.30); EST Glomerular Filtration Rate 103 mL/min (>60); Est Glom Filt Rate - Afr Amer 124 mL/min (>60); Estimated Creatinine Clearance 154.59 ml/min; Glucose 93 mg/dL (74-106); Potassium 3.8 mmol/L (3.5-5.1); Sodium Level 138 mmol/L (136-145)
[2023-07-15 23:09] LABS: Bacteria 0 SEEN /hpf (None Seen); Mucous, Urine 0 SEEN /hpf (<or=2+); Red Blood Cells-Urine 0 SEEN /hpf (0-5); Squamous Epithelial Cells - UA 0 SEEN /hpf (0-5)
[2023-07-15 23:11] LABS: Color, Urine Yellow (Yellow); Glucose, Dipstick Normal (Normal); Ketone-Dipstick Negative (Negative); Leukocyte Esterase-Dipstick 25 /ul (Negative); Nitrite-Dipstick Negative (Negative); Occult Blood-Urine 10 /ul (Negative); Protein-Dipstick 15 mg/dl (Negative); Specific Gravity, Urine 1.025 (1.002-1.030); Urine Bilirubin Dipstick Negative (Negative); Urine Clarity Clear (Clear); Urine Urobilinogen Normal (Normal)
[2023-07-15 23:23] LABS: White Blood Cells 0-5 SEEN /hpf (0-5)
--- NOTE | 2023-07-16 01:31 | CT_ITS ---
INDICATION: Right lower quadrant abdominal pain with leukocytosis. Hematuria, dysuria, right groin pain. EXAMINATION: CT Abdomen And Pelvis W/ Contrast Injection TECHNIQUE: Helically acquired images were obtained of the abdomen and pelvis following IV contrast. 2-D reconstructions reviewed. A radiation dose optimization technique was used for this scan. IV Contrast dosage and agent: 100 cc [id number] Oral contrast: None. COMPARISON: None. FINDINGS: LOWER CHEST: No acute findings within the imaged lung bases. Heart size within normal limits. LIVER: Homogeneous. No concerning lesion. GALLBLADDER AND BILIARY TREE: No calcified gallstones identified. No gallbladder wall edema demonstrated. No significant biliary ductal dilation. PANCREAS: No discrete mass or peripancreatic edema. SPLEEN: Normal size without concerning lesion. ADRENAL GLANDS: Unremarkable. KIDNEYS AND URETERS: Normal renal size and position. No perinephric edema or hydronephrosis. No concerning lesion. PERITONEUM: No significant free fluid. No peritoneal free air detected. RETROPERITONEUM: No retroperitoneal mass or pathologic fluid collection. BOWEL: Appendix is medial to cecum within right lower quadrant, with no evidence of appendicitis. No bowel obstruction or significant bowel thickening. No focal inflammatory change. LYMPH NODES: No enlarged mesenteric or retroperitoneal lymph nodes. VESSELS: No acute findings. No abdominal aortic aneurysm. URINARY BLADDER: Unremarkable as visualized. REPRODUCTIVE ORGANS: No pelvic masses. ABDOMINAL WALL: Minimal subcutaneous fat stranding at right groin adjacent to right inguinal lymph node measuring 9 mm short axis diameter. There are small bilateral inguinal lymph nodes. No discrete mass or hernia defect. BONES: Intact with no suspicious osseous lesion. CT/Abdomen/Pelvis W IV Cont ONLY IMPRESSION: 1. Mild subcutaneous edema at right groin with adjacent subcentimeter inguinal lymph node. Correlate clinically for focal cellulitis or mild adenitis. 2. Otherwise, no evidence of acute intra-abdominal abnormality. Electronically Signed: Simon Thapa MD at 2:52 EST ,
[2023-07-16 02:44] VITALS: BP 131/76; PULSE 68; RESP 16; O2SAT 98
[2023-07-16] MEDS: Doxycycline 100 MG CAPSULE PO (03:56)
[2023-07-16 04:07] VITALS: BP 120/93; PULSE 70; RESP 15; O2SAT 97
[2023-07-16 04:08] VITALS: BP 120/93; PULSE 70; RESP 15; O2SAT 97
== END 2023-07-16 04:09 | disposition home or self-care (01) ==
PROVIDERS: Emergency Provider Emergency Medicine; Visit Provider Emergency Medicine
DX: R31.0 Gross hematuria (principal); R59.0 Localized enlarged lymph nodes; R10.2 Pelvic and perineal pain; R30.0 Dysuria; R03.0 Elevated blood-pressure reading, without diagnosis of hypertension; E66.9 Obesity, unspecified; F17.210 Nicotine dependence, cigarettes, uncomplicated
CPT/HCPCS: 74177; 80048; 81001; 85025; 87491; 87591; 99283